=== PATIENT | female | born 1990 | race African-American/Black ===

== ENCOUNTER 2017-04-06 13:34 | Emergency (ER) | payer OTHER ==
[2017-04-06] MEDS: ACETAMINOPHEN 500 MG TABLET PO ×2 (14:45)
== END 2017-04-06 14:55 | disposition home or self-care (01) ==
LOC: ER 13:34
DX: O9A.212 Injury, poisoning and certain other consequences of external causes complicating pregnancy, second trimester (principal); S93.491A Sprain of other ligament of right ankle, initial encounter; Z91.018 Allergy to other foods; Z3A.18 18 weeks gestation of pregnancy; W10.9XXA Fall (on) (from) unspecified stairs and steps, initial encounter; Y93.89 Activity, other specified; Y99.8 Other external cause status; Y92.89 Other specified places as the place of occurrence of the external cause
CPT/HCPCS: 73610; 73630; 99284; L4350